=== PATIENT | male | born 1935 | race Hispanic/Latino ===

== ENCOUNTER 2019-11-15 10:08 | Inpatient (IN) | payer MEDICARE ==
[~2019-11-15] VITALS: Ht 165.1 cm; Wt 81.6 kg
[~2019-11-15 10:08] MED LIST: ASPIRIN PO; DOXA8TAB81 PO; EZET10TA13 PO; FENOFIBRATE PO; FLAXSEED OIL PO; PRAV40TA3 PO; SAWPALMETTO PO
[2019-11-15] MEDS ORDERED: ONDANSETRON HCL 4 MG/2 ML VIAL ONE (10:38)
[2019-11-15] MEDS ORDERED: SODIUM CHLORIDE 0.9% 1000ML 1,000 ML IV ONE (10:39)
[2019-11-15 10:46] LABS: BASOPHILS % (AUTO) 0.7 % (0.0-5.0); EOSINOPHILS % (AUTO) 0.6 % (0.0-8.0); HEMATOCRIT 41.6 % (42-54); LYMPHOCYTES % (AUTO) 15.5 % (21.0-51.0); MEAN CORPUSCULAR HEMOGLOBIN 28.5 pg (27.0-33.0); MEAN CORPUSCULAR HGB CONC 32.9 g/dL (32.0-36.0); MEAN CORPUSCULAR VOLUME 86.5 fL (79-99); MONOCYTES % (AUTO) 7.1 % (3.0-13.0); NEUTROPHILS % (AUTO) 75.9 % (40.0-77.0); PLATELET COUNT (AUTO) 256 K/uL (130-400); RED BLOOD CELL COUNT(AUTO) 4.81 MIL/uL (4.50-6.20); RED CELL DISTRIBUTION WIDTH 13.7 % (11.0-15.5); WHITE BLOOD COUNT (AUTO) 8.9 K/uL (4.8-10.8)
[2019-11-15 10:58] LABS: CREATININE 1.3 mg/dL (0.5-1.5)
[2019-11-15 11:00] LABS: INR 0.97 (0.85-1.15); PARTIAL THROMBOPLASTIN TIME 25.4 SEC (26.3-35.5); PROTHROMBIN TIME 10.5 SEC (9.6-11.6)
[2019-11-15 11:02] LABS: ALBUMIN 3.3 g/dL (3.5-5.0); BILIRUBIN,DIRECT 0.2 mg/dL (0.0-0.3); BILIRUBIN,TOTAL 0.7 mg/dL (0.2-1.0); TOTAL PROTEIN, SERUM 7.1 g/dL (6.0-8.3)
[2019-11-15 11:53] LABS: APPEARANCE,URINE Cloudy (CLEAR); BILIRUBIN,URINE Negative (NEGATIVE); COLOR,URINE Dark Yellow (YELLOW); GLUCOSE, URINE (UA) Negative (NEGATIVE); KETONES,URINE Trace mg/dL (NEGATIVE); LEUKOCYTE ESTERASE ,URINE Trace (NEGATIVE); NITRATE,URINE Negative (NEGATIVE); OCCULT BLOOD,URINE Negative (NEGATIVE); PROTEIN,URINE Trace mg/dL (NEGATIVE)
[2019-11-15 12:44] LABS: BACTERIA,URINE Few /HPF (None Seen); RBC,URINE 0-1 /HPF (0-1); WBC,URINE 0-1 /HPF (0-1)
[2019-11-15 12:45] LABS: CALCIUM OXALATE CRYSTALS,UR Few /LPF (None Seen); SQUAMOUS EPITHELIAL CELL,UR 30-50 /HPF (0-2)
[2019-11-15] MEDS ORDERED: ACETAMINOPHEN-CODEINE 300/30MG TAB PO PRN ×2 (13:15)
[2019-11-15] MEDS ORDERED: HYDRALAZINE HCL 20 MG/ML VIAL IV PRN (13:15)
[2019-11-15 14:19] LABS: URIC ACID 3.5 mg/dL (2.6-7.2)
--- NOTE | 2019-11-15 16:00 | NUR ---
DR. BOO PAGED PENDING CALL BACK.
[2019-11-15 16:45] VITALS: BP 146/64
[2019-11-15 17:38] VITALS: BP 163/67
[2019-11-15] MEDS: SODIUM CHLORIDE 0.9% 1000ML 1,000 ML IV SCH (17:43)
[2019-11-15 19:15] VITALS: BP 137/61
[2019-11-15 23:13] VITALS: BP 124/51
[2019-11-16 03:20] VITALS: BP 131/54
[2019-11-16] MEDS: SODIUM CHLORIDE 0.9% 1000ML 1,000 ML IV SCH (04:53)
[2019-11-16] MEDS: ENOXAPARIN SODIUM 40 MG/0.4 ML SYRINGE SQ SCH (08:45)
[2019-11-16 09:20] VITALS: BP 136/59
--- NOTE | 2019-11-16 10:24 | NUR ---
DR. BOO CALLED, ADD PT. TO HIS CENSUS, WILL SEE HIM THIS AM.
--- NOTE | 2019-11-16 11:00 | NUR ---
MET WITH PATIENT FOR DC PLANNING. LIVES W SPOUSE AMBER WHO WILL PROVIDE TRANSPOSRT, PT IS ACTIVE, INDEPENDENT, NO DME, DRIVES, FOLLOWS UP W PMD Q 3 MOS FOR BLOOD WORK, DCP IS HOME AFTER BIOPSY. Addendum: 11/16/19 at 2102 by KAYE EDWARD RN CM Amended: Links added.
--- NOTE | 2019-11-16 11:13 | NUR ---
PT. TO BE ADDED TO DR. MILENA MCCLURE. DR. BOO HAS ALREADY TALKED TO HIM
[2019-11-16 12:00] VITALS: BP 149/64
[2019-11-16 16:00] VITALS: BP 151/61
--- NOTE | 2019-11-16 18:00 | NUR ---
HAS NOT C/O OF ANY DISCOMFORT TODAY, UP AD [place]. STILL PENDING TO BE SEEN BY DR. ABBOTT
[2019-11-16 20:50] VITALS: BP 143/63
[2019-11-17] VITALS (24 sets, daily range): BP systolic 131–163; BP diastolic 56–75
[2019-11-17] MEDS: SODIUM CHLORIDE 0.9% 1000ML 1,000 ML IV SCH ×3 (02:29→23:08)
[2019-11-17 06:23] LABS: EOSINOPHILS % (AUTO) 1.6 % (0.0-8.0); HEMATOCRIT 35.7 % (42-54); LYMPHOCYTES % (AUTO) 18.7 % (21.0-51.0); MEAN CORPUSCULAR HGB CONC 32.5 g/dL (32.0-36.0); MONOCYTES % (AUTO) 9.6 % (3.0-13.0); NEUTROPHILS % (AUTO) 68.8 % (40.0-77.0); PLATELET COUNT (AUTO) 242 K/uL (130-400); RED BLOOD CELL COUNT(AUTO) 4.15 MIL/uL (4.50-6.20); RED CELL DISTRIBUTION WIDTH 13.5 % (11.0-15.5); WHITE BLOOD COUNT (AUTO) 6.8 K/uL (4.8-10.8)
[2019-11-17 07:05] LABS: CREATININE 1.1 mg/dL (0.5-1.5); POTASSIUM 4.2 mmol/L (3.5-5.1)
[2019-11-17] MEDS: ENOXAPARIN SODIUM 40 MG/0.4 ML SYRINGE SQ SCH (09:00)
--- NOTE | 2019-11-17 09:00 | NUR ---
WILL HOLD LOVENOX THIS AM UNTIL SEEN BY DR. ABBOTT.
--- NOTE | 2019-11-17 09:54 | NUR ---
DR. ABBOTT IN TO SEE PT. NOW. PLAN TO TAKE HIM TO OR TODAY AT 1PM. WILL KEEP NPO
--- NOTE | 2019-11-17 12:00 | NUR ---
IN ROOM NOW,
[2019-11-17] MEDS ORDERED: LIDOCAINE PF 2% 5ML ABBOJECT ONE (13:28)
[2019-11-17] MEDS ORDERED: NEOSTIGMINE 5MG/5ML SYR IV ONE (13:29)
[2019-11-17] MEDS ORDERED: MIDAZOLAM HCL 1 MG/ML 2ML VIAL ONE (13:29)
[2019-11-17] MEDS ORDERED: PROPOFOL 10 MG/ML 20ML VIAL IV ONE (13:29)
[2019-11-17] MEDS ORDERED: DEXAMETHASONE SOD PHOSPHATE 10MG/ML 1ML VIAL ONE (13:29)
[2019-11-17] MEDS ORDERED: ONDANSETRON HCL 4 MG/2 ML VIAL ONE (13:29)
[2019-11-17] MEDS ORDERED: GLYCOPYRROLATE 1 MG/5 ML SYRINGE ONE (13:29)
[2019-11-17] MEDS ORDERED: ROCURONIUM 10MG/1ML SYR 10 MG/ML ML ONE (13:30)
[2019-11-17] MEDS ORDERED: FENTANYL CITRATE PF 50 MCG/1 ML 2ML VIAL ONE (13:31)
--- NOTE | 2019-11-17 16:00 | NUR ---
WAITING TO GO TO OR, PT. AND SPOUSE WONDERING WHY HE HASNT BEEN TAKEN, WERE TOLD HE WAS GOING AT 1PM
--- NOTE | 2019-11-17 18:44 | NUR ---
TO OR NOW,
[2019-11-17] MEDS ORDERED: ESMOLOL HCL 10 MG/ML 10 ML VIAL ONE (20:25)
[2019-11-18] VITALS (9 sets, daily range): BP systolic 126–159; BP diastolic 54–63
[2019-11-18] MEDS: SODIUM CHLORIDE 0.9% 1000ML 1,000 ML IV SCH ×4 (01:09→08:43)
[2019-11-18 06:05] LABS: BASOPHILS % (AUTO) 0.1 % (0.0-5.0); HEMATOCRIT 36.1 % (42-54); LYMPHOCYTES % (AUTO) 12.3 % (21.0-51.0); MEAN CORPUSCULAR HEMOGLOBIN 28.7 pg (27.0-33.0); MEAN CORPUSCULAR VOLUME 87.2 fL (79-99); MONOCYTES % (AUTO) 1.6 % (3.0-13.0); NEUTROPHILS % (AUTO) 85.5 % (40.0-77.0); PLATELET COUNT (AUTO) 248 K/uL (130-400); RED BLOOD CELL COUNT(AUTO) 4.14 MIL/uL (4.50-6.20); RED CELL DISTRIBUTION WIDTH 13.4 % (11.0-15.5); WHITE BLOOD COUNT (AUTO) 7.6 K/uL (4.8-10.8)
[2019-11-18 06:22] LABS: POTASSIUM 4.7 mmol/L (3.5-5.1)
[2019-11-18] MEDS: ENOXAPARIN SODIUM 40 MG/0.4 ML SYRINGE SQ SCH (09:00)
--- NOTE | 2019-11-18 15:57 | NUR ---
RD NOTIFICATION Pt admitted with L-Inguinal mass, lymphadenopathy, Wt Loss. Pt with significant wt loss x 1 month. Pt with planned and unplanned wt loss as per EMR. Pt Clear Liquid Diet time of screen, s/p surgical procedure. Pt receiving care at time of visit. Pt with Obesity Class I. PO intake at 100%. Recommend advance diet as tolerated to Heart Healthy Diet Order. RD to follow up with wt management nutrition education. Please notify as additional nutrition concerns arise. Thank you. Addendum: 11/18/19 at [address] Amended: Links added.
[2019-11-19] VITALS (7 sets, daily range): BP systolic 120–143; BP diastolic 54–67
[2019-11-19 05:28] LABS: BASOPHILS % (AUTO) 0.5 % (0.0-5.0); EOSINOPHILS % (AUTO) 1.2 % (0.0-8.0); HEMATOCRIT 32.2 % (42-54); LYMPHOCYTES % (AUTO) 21.4 % (21.0-51.0); MEAN CORPUSCULAR HEMOGLOBIN 28.4 pg (27.0-33.0); MEAN CORPUSCULAR HGB CONC 33.2 g/dL (32.0-36.0); MEAN CORPUSCULAR VOLUME 85.4 fL (79-99); MONOCYTES % (AUTO) 9.5 % (3.0-13.0); NEUTROPHILS % (AUTO) 67.1 % (40.0-77.0); PLATELET COUNT (AUTO) 248 K/uL (130-400); RED BLOOD CELL COUNT(AUTO) 3.77 MIL/uL (4.50-6.20); RED CELL DISTRIBUTION WIDTH 13.6 % (11.0-15.5); WHITE BLOOD COUNT (AUTO) 7.4 K/uL (4.8-10.8)
[2019-11-19 06:01] LABS: ALBUMIN 2.4 g/dL (3.5-5.0); BILIRUBIN,TOTAL 0.5 mg/dL (0.2-1.0); POTASSIUM 3.6 mmol/L (3.5-5.1); TOTAL PROTEIN, SERUM 5.4 g/dL (6.0-8.3)
[2019-11-19] MEDS: ENOXAPARIN SODIUM 40 MG/0.4 ML SYRINGE SQ SCH (08:57)
--- NOTE | 2019-11-19 12:04 | NUR ---
RE: BONE MARROW BIOPSY PATIENT RECEIVED LOVENOX 40MG AT 0857. DR Zaheer JUSTICE NOTIFIED AND RESCHEDULED PROCEDURE FOR TOMORROW. HOLD LOVENOX FOR 24HRS. PROCEDURE OUTCOME REPORTED TO Zaheer HUITRON RN
[2019-11-19 16:48] LABS: INR 0.96 (0.85-1.15); PROTHROMBIN TIME 10.4 SEC (9.6-11.6)
[2019-11-19] MEDS ORDERED: ATOR40TA69 PO ×2 (19:01)
[2019-11-19] MEDS ORDERED: SILO8CAP6 PO ×2 (19:01)
[2019-11-19] MEDS ORDERED: FINA5TAB41 PO ×2 (19:01)
[2019-11-19] MEDS ORDERED: BICA50TA7 PO ×2 (19:01)
[2019-11-20] VITALS (11 sets, daily range): BP systolic 117–157; BP diastolic 54–71
[2019-11-20 05:41] LABS: HEMATOCRIT 29.7 % (42-54); MEAN CORPUSCULAR HEMOGLOBIN 28.5 pg (27.0-33.0); MEAN CORPUSCULAR HGB CONC 33.3 g/dL (32.0-36.0); MEAN CORPUSCULAR VOLUME 85.6 fL (79-99); PLATELET COUNT (AUTO) 221 K/uL (130-400); RED BLOOD CELL COUNT(AUTO) 3.47 MIL/uL (4.50-6.20); RED CELL DISTRIBUTION WIDTH 13.9 % (11.0-15.5); WHITE BLOOD COUNT (AUTO) 5.8 K/uL (4.8-10.8)
[2019-11-20 05:52] LABS: LYMPHOCYTES % (MANUAL) 20 % (22-44); MAN.DIFF COMMENT-IMPRESSION MANUAL DIFFERENTIAL; MONOCYTES % (MANUAL) 4 % (2-9); PLATELET MORPHOLOGY COMMENT ADEQUATE; SEGMENTED NEUTROPHILS % 76 % (40-70)
[2019-11-20 05:57] LABS: ALBUMIN 2.1 g/dL (3.5-5.0); BILIRUBIN,TOTAL 0.5 mg/dL (0.2-1.0); CREATININE 0.8 mg/dL (0.5-1.5); POTASSIUM 3.5 mmol/L (3.5-5.1); TOTAL PROTEIN, SERUM 4.9 g/dL (6.0-8.3)
[2019-11-20] MEDS ORDERED: FENTANYL CITRATE PF 50 MCG/1 ML 2ML VIAL ONE (10:50)
[2019-11-20] MEDS ORDERED: MIDAZOLAM HCL 1 MG/ML 2ML VIAL ONE (10:50)
--- NOTE | 2019-11-20 11:32 | NUR ---
RE: RT ILIAC BONE MARROW BIOPSY PROCEDURE PERFORMED BY DR Zaheer JUSTICE. PUNCTURE SITE RT BUTTOCK. RT ILIAC BONE MARROW ASPIRATED WITH CORE AND CLOT COLLECTED. SPECIMEN SENT TO LAB. END OF PROCEDURE AT 1115. ASPIRATION NEEDLE REMOVED AND DRESSING APPLIED. NO BLEEDING NOTED. REPORT GIVEN TO Victoriano CHAUDHARY LVN AND PATIENT TRANSPORTED TO [facility] VIA BED AT 1130.
--- NOTE | 2019-11-20 11:35 | NUR ---
PROCEDURE PATIENT S/P BONE MARROW BIOPSY TO RIGHT BUTTOCK AREA. DRESSING DRY AND INTACT. PATIENT STABLE AT THIS TIME, DENIES ANY DISCOMFORT. WILL CONTINUE TO MONITOR CLOSELY.
[2019-11-21] VITALS (12 sets, daily range): BP systolic 99–145; BP diastolic 52–65
[2019-11-21 04:42] LABS: BASOPHILS % (AUTO) 0.8 % (0.0-5.0); HEMATOCRIT 32.1 % (42-54); MEAN CORPUSCULAR HEMOGLOBIN 28.5 pg (27.0-33.0); MEAN CORPUSCULAR VOLUME 86.3 fL (79-99); MONOCYTES % (AUTO) 9.9 % (3.0-13.0); NEUTROPHILS % (AUTO) 60.8 % (40.0-77.0); PLATELET COUNT (AUTO) 233 K/uL (130-400); RED BLOOD CELL COUNT(AUTO) 3.72 MIL/uL (4.50-6.20); RED CELL DISTRIBUTION WIDTH 13.6 % (11.0-15.5); WHITE BLOOD COUNT (AUTO) 6.4 K/uL (4.8-10.8)
[2019-11-21 05:10] LABS: ALBUMIN 2.2 g/dL (3.5-5.0); BILIRUBIN,TOTAL 0.9 mg/dL (0.2-1.0); CREATININE 0.9 mg/dL (0.5-1.5); POTASSIUM 3.8 mmol/L (3.5-5.1); TOTAL PROTEIN, SERUM 5.2 g/dL (6.0-8.3)
[2019-11-21] MEDS ORDERED: FENTANYL CITRATE PF 50 MCG/1 ML 2ML VIAL ONE (12:06)
[2019-11-21] MEDS ORDERED: MIDAZOLAM HCL 1 MG/ML 2ML VIAL ONE (12:06)
[2019-11-21] MEDS ORDERED: LIDOCAINE HCL 1% MDV 50ML VIAL ONE (12:06)
[2019-11-21] MEDS ORDERED: OCTYL 2-CYANOACRYLATE 1 EACH TP ONE (13:06)
--- NOTE | 2019-11-21 13:45 | NUR ---
PROCEDURE PATIENT RECEIVED FROM ASAD MCRAE ( DIRECTOR OF BROADCAST). PATIENT S/P PORTACATH PLACEMENT TO RIGHT CHEST. OKAY TO USE PORT. KEEP HOB AT 45 DEGREES FOR 4 HOURS. DRESSING DRY AND INTACT. PATIENT STABLE AT THIS TIME.
== END 2019-11-21 18:15 | disposition home or self-care (01) | DRG 823 ==
LOC: EDH 10:08 → OBSVTOIN 13:09 → EDHIP 13:09 → 3DH 14:18
PROVIDERS: ADMIT Internal Medicine; ATTEND Internal Medicine
PROC: 07BJ0ZX Excision of Left Inguinal Lymphatic, Open Approach, Diagnostic (ICD-10-PCS; principal; 2019-11-17 19:50)
PROC: 07DR3ZX Extraction of Iliac Bone Marrow, Percutaneous Approach, Diagnostic (ICD-10-PCS; 2019-11-20)
PROC: 0JH63XZ Insertion of Tunneled Vascular Access Device into Chest Subcutaneous Tissue and Fascia, Percutaneous Approach (ICD-10-PCS; 2019-11-21)
PROC: 02HV33Z Insertion of Infusion Device into Superior Vena Cava, Percutaneous Approach (ICD-10-PCS; 2019-11-21)
PROC: B5181ZA Fluoroscopy of Superior Vena Cava using Low Osmolar Contrast, Guidance (ICD-10-PCS; 2019-11-21)
PROC: B548ZZA Ultrasonography of Superior Vena Cava, Guidance (ICD-10-PCS; 2019-11-21)
DX: C85.85 Other specified types of non-Hodgkin lymphoma, lymph nodes of inguinal region and lower limb (principal); E43 Unspecified severe protein-calorie malnutrition; R59.0 Localized enlarged lymph nodes; G20 Parkinson's disease; I25.10 Atherosclerotic heart disease of native coronary artery without angina pectoris; E78.00 Pure hypercholesterolemia, unspecified; E27.8 Other specified disorders of adrenal gland; N28.1 Cyst of kidney, acquired; N40.0 Benign prostatic hyperplasia without lower urinary tract symptoms; N18.9 Chronic kidney disease, unspecified; I12.9 Hypertensive chronic kidney disease with stage 1 through stage 4 chronic kidney disease, or unspecified chronic kidney disease; J44.9 Chronic obstructive pulmonary disease, unspecified; R59.1 Generalized enlarged lymph nodes; D64.9 Anemia, unspecified; E11.22 Type 2 diabetes mellitus with diabetic chronic kidney disease; Z68.30 Body mass index [BMI] 30.0-30.9, adult; Z90.49 Acquired absence of other specified parts of digestive tract; Z83.3 Family history of diabetes mellitus; Z82.0 Family history of epilepsy and other diseases of the nervous system; Z82.5 Family history of asthma and other chronic lower respiratory diseases; Z82.3 Family history of stroke; Z82.49 Family history of ischemic heart disease and other diseases of the circulatory system
CPT/HCPCS: 36415; 36561; 38222; 74176; 77001; 77012; 80048; 80053; 80076; 81001; 82550; 82948; 83615; 83690; 84484; 84550; 85025; 85610; 85730; 88184; 88185; 88237; 88305; 88311; 88313; 88341; 88342; 88360; 88374; 93005; 93306; 93356; 99152; 99153; 99156; 99157; A4606; G0378; J1100; J1644; J1650; J2001; J2250; J2405; J2704; J2710; J3010; J3490; J7030

== ENCOUNTER 2019-11-26 11:49 | Emergency (ER) | payer MEDICARE ==
[~2019-11-26 11:49] MED LIST changes: +ATOR40TA69 PO; +BICA50TA7 PO; +FINA5TAB41 PO; +SILO8CAP6 PO
[2019-11-26] MEDS ORDERED: SODIUM CHLORIDE 0.9% 1000ML 1,000 ML IV ONE (11:50)
[2019-11-26] MEDS ORDERED: ONDANSETRON HCL 4 MG/2 ML VIAL ONE (12:40)
[2019-11-26 13:35] LABS: CREATININE 1.1 mg/dL (0.5-1.5); POTASSIUM 3.9 mmol/L (3.5-5.1)
[2019-11-26 13:39] LABS: ALBUMIN 2.2 g/dL (3.5-5.0); BILIRUBIN,TOTAL 0.6 mg/dL (0.2-1.0); TOTAL PROTEIN, SERUM 5.2 g/dL (6.0-8.3)
[2019-11-26 13:40] LABS: BASOPHILS % (AUTO) 0.5 % (0.0-5.0); EOSINOPHILS % (AUTO) 0.4 % (0.0-8.0); HEMATOCRIT 34.8 % (42-54); LYMPHOCYTES % (AUTO) 12.5 % (21.0-51.0); MEAN CORPUSCULAR HEMOGLOBIN 28.5 pg (27.0-33.0); MEAN CORPUSCULAR VOLUME 86.4 fL (79-99); MONOCYTES % (AUTO) 8.1 % (3.0-13.0); NEUTROPHILS % (AUTO) 77.8 % (40.0-77.0); PLATELET COUNT (AUTO) 232 K/uL (130-400); RED BLOOD CELL COUNT(AUTO) 4.03 MIL/uL (4.50-6.20); RED CELL DISTRIBUTION WIDTH 13.6 % (11.0-15.5); WHITE BLOOD COUNT (AUTO) 7.5 K/uL (4.8-10.8)
[2019-11-26 14:46] LABS: APPEARANCE,URINE Cloudy (CLEAR); BILIRUBIN,URINE Negative (NEGATIVE); COLOR,URINE Dark Yellow (YELLOW); GLUCOSE, URINE (UA) Negative (NEGATIVE); KETONES,URINE Trace mg/dL (NEGATIVE); LEUKOCYTE ESTERASE ,URINE Negative (NEGATIVE); NITRATE,URINE Negative (NEGATIVE); OCCULT BLOOD,URINE Negative (NEGATIVE); PROTEIN,URINE Negative (NEGATIVE)
[2019-11-26 15:11] LABS: RBC,URINE 0-1 /HPF (0-1); WBC,URINE 0-1 /HPF (0-1)
[2019-11-26 15:12] LABS: BACTERIA,URINE Few /HPF (None Seen)
[2019-11-26 15:13] LABS: MUCUS,URINE Moderate LPF (None Seen); SQUAMOUS EPITHELIAL CELL,UR Few /HPF (0-2)
== END 2019-11-26 14:51 | disposition home or self-care (01) ==
LOC: EDH 11:49
DX: R11.0 Nausea (principal); E11.9 Type 2 diabetes mellitus without complications; E78.5 Hyperlipidemia, unspecified; Z85.830 Personal history of malignant neoplasm of bone
CPT/HCPCS: 36415; 74176; 80053; 81001; 82550; 84484; 85025; 93005; 96374; 99285; J2405; J7030

== ENCOUNTER → 2021-11-15 | Outpatient (CLI) | payer MEDICARE ==
[~2021-11-15] MED LIST changes: -ASPIRIN PO; -DOXA8TAB81 PO; -EZET10TA13 PO; -FLAXSEED OIL PO; -PRAV40TA3 PO; -SAWPALMETTO PO
== END | disposition home or self-care (01) ==
LOC: RAH 13:28
PROVIDERS: ATTEND Physical Medicine & Rehabilitation
DX: M54.16 Radiculopathy, lumbar region (principal)
CPT/HCPCS: 72114

== ENCOUNTER → 2023-05-09 | Outpatient (CLI) | payer MEDICARE | END | disposition home or self-care (01) | LOC: SHCH 07:48 | PROVIDERS: ATTEND Internal Medicine Cardiovascular Disease | DX: I35.0 Nonrheumatic aortic (valve) stenosis (principal); I20.9 Angina pectoris, unspecified; I10 Essential (primary) hypertension; E78.5 Hyperlipidemia, unspecified | CPT/HCPCS: 93306 ==

== ENCOUNTER → 2023-05-16 | Outpatient (CLI) | payer MEDICARE ==
[~2023-05-16] MED LIST changes: +REGADENOSON 0.4 MG/5 ML PF SYG IVP ONE
== END | disposition home or self-care (01) ==
LOC: SHCH 08:51
PROVIDERS: ATTEND Internal Medicine Cardiovascular Disease
DX: I20.9 Angina pectoris, unspecified (principal); Z95.0 Presence of cardiac pacemaker
CPT/HCPCS: 78452; 96374; 93017; J2785; A9500 ×2

== ENCOUNTER → 2024-07-19 | Outpatient (CLI) | payer MEDICARE ==
[~2024-07-19] MED LIST changes: +ACET120S PR; +ACET325C6 PO; +AEC81 PO; -ATOR40TA69 PO; +ATOR40TA71 PO; -BICA50TA7 PO; +CLOP75TA32 PO; +ENOX30DI5 SQ; -FENOFIBRATE PO; -FINA5TAB41 PO; +FURO20TA4 PO; +LACT-441 PO; +LIDO1ADH71 TP; +LISI2.5T13 PO; +MAGN2PIG IV; +METO25TA6 PO; +ONDA22I IM; +PANT40VI IV; +POLY17PO4 PO; +POTA20PA32 PO; -REGADENOSON 0.4 MG/5 ML PF SYG IVP ONE; -SILO8CAP6 PO; +SUCR1TAB2 PO; +[UNRECOGNIZED DRUG - CODE] IV
--- NOTE | 2024-07-20 12:17 | HMCSR ---
APPROVED REPORT Bilateral Lower Extremity Venous Study for Venous Competence., DVT. Indications PVD Vein Imaging CFV (R): Normal flow, augmentation and compression. No evidence of DVT. 8.9mm 1383 ms of reflux. SFJ (R): Normal flow, augmentation and compression. No evidence of DVT. FEM (R): Normal flow, augmentation and compression. No evidence of DVT. POP (R): Normal flow, augmentation and compression. No evidence of DVT. DFV (R): Normal flow, augmentation and compression. No evidence of DVT. PTV (R): Normal flow, augmentation and compression. No evidence of DVT. Peroneals (R): Normal flow, augmentation and compression. No evidence of DVT. CFV (L): Normal flow, augmentation and compression. No evidence of DVT. 8.8mm 756ms of reflux. SFJ (L): Normal flow, augmentation and compression. No evidence of DVT. FEM (L): Normal flow, augmentation and compression. No evidence of DVT. POP (L): Normal flow, augmentation and compression. No evidence of DVT. DFV (L): Normal flow, augmentation and compression. No evidence of DVT. PTV (L): Normal flow, augmentation and compression. No evidence of DVT. Peroneals (L): Normal flow, augmentation and compression. No evidence of DVT. Technologist Impression Deep veins of bilateral lower extrimities appear patent and compressible without thrombus. Deep vein reflux seen in RCFV No venous insufficiency seen on lower extrimities. RGSV Junction 3.8mm 261ms thigh 1.7mm 0.0ms knee 1.6mm 0.0ms calf 0.9mm 183ms RSSV Prox 2.4mm 0.0ms Mid 2.1ms 0.0ms LGSV Junction Not Seen thigh Not seen knee not seen Calf not seen LSSV Prox 2.0mm 0.0ms Mid 1.4mm 0.0ms Conclusion Deep vein reflux seen in RCFV No venous insufficiency seen on lower extrimities. Conclusion Deep vein reflux seen in RCFV No venous insufficiency seen on lower extrimities.
--- NOTE | 2024-07-20 12:18 | HMCSR ---
APPROVED REPORT Laterality: Bilateral Indications PVD VELOCITY AND DOPPLER WAVEFORM ANALYSIS POLITICAL SCIENCE RESEARCH ASSISTANT (R) 99.6cm/sec, Triphasic, POLITICAL SCIENCE RESEARCH ASSISTANT (L) 122.9cm/sec, Biphasic, Prof Fem Art. (R) 160.6cm/sec, Biphasic, Prof Fem Art. (L) 109.0cm/sec, Biphasic, Fem Art Prox. (R) 204.0cm/sec, Biphasic, Fem Art Prox. (L) 117.3cm/sec, Biphasic, Fem Art Mid. (R) 83.4cm/sec, Biphasic, Fem Art Mid. (L) 112.3cm/sec, Biphasic, Fem Art Dist (R) 70.0cm/sec, Biphasic, Fem Art Dist. (L) 69.3cm/sec, Biphasic, Pop Art(AK) (R) 120.1cm/sec, Biphasic, Pop Art (AK) (L) 79.1cm/sec, Biphasic, Pop Art (Fossa)(R) 88.8cm/sec, Biphasic, Pop Art (Fossa) (L) 84.0cm/sec, Biphasic, Pop Art(BK) (R) 91.5cm/sec, Biphasic, Pop Art (BK) (L) 86.5cm/sec, Biphasic, SYSTEMS PROGRAMMER Prox. (R) 88.0cm/sec, Biphasic, SYSTEMS PROGRAMMER Prox. (L) 66.4cm/sec, Biphasic, SYSTEMS PROGRAMMER Mid. (R) 120.4cm/sec, Biphasic, SYSTEMS PROGRAMMER Mid. (L) 92.4cm/sec, Biphasic, SYSTEMS PROGRAMMER Dist. (R) 73.6cm/sec, Biphasic, SYSTEMS PROGRAMMER Dist. (L) 99.6cm/sec, Biphasic, Per Art Prox. (R) 47.3cm/sec, Biphasic, Per Art Prox. (L) 57.1cm/sec, Biphasic, Per Art Mid. (R) 47.3cm/sec, Biphasic, Per Art Mid. (L) 70.1cm/sec, Biphasic, Per Art Dist. (R) 66.9cm/sec, Biphasic, Per Art Dist. (L) 64.4cm/sec, Biphasic, ZOILA Prox. (R) 102.1cm/sec, Biphasic, ZOILA Prox. (L) 89.7cm/sec, Biphasic, ZOILA Mid. (R) 120.1cm/sec, Biphasic ZOILA Mid. (L) 132.5cm/sec, Biphasic, ZOILA Dist. (R) 86.5cm/sec, Biphasic, ZOILA Dist. (L) 107.7cm/sec, Biphasic, Technologist Impression No evidence of significant arterial insufficiency of bilateral lower extremities. Conclusion No evidence of significant arterial insufficiency of bilateral lower extremities. Conclusion No evidence of significant arterial insufficiency of bilateral lower extremities.
== END | disposition home or self-care (01) ==
LOC: SHCH 13:37
PROVIDERS: ATTEND Internal Medicine Cardiovascular Disease
DX: I87.1 Compression of vein (principal); I73.9 Peripheral vascular disease, unspecified
CPT/HCPCS: 93925; 93970